=== PATIENT | male | born 1955 | race Caucasian/White ===

== ENCOUNTER 2018-12-27 18:41 | Emergency (ER) | payer SELFPAY ==
[~2018-12-27] VITALS: Ht 172.7 cm; Wt 80.0 kg
[~2018-12-27 18:41] MED LIST: NAPR-856 PO; PANT40GR PO
[2018-12-27 18:47] VITALS: BP 115/78
--- NOTE | 2018-12-27 19:20 | NUR ---
REPORT FROM ANGIE BURKS
[2018-12-27] MEDS ORDERED: THIAMINE 100MG TABLET PO ONE (19:30)
--- NOTE | 2018-12-27 20:22 | NUR ---
PT RESTING IN GURNEY W/ EYES CLOSED. RESPIRATIONS EVEN/UNLABORED.
[2018-12-27] MEDS ORDERED: THIAMINE 100MG TABLET ONE (20:38)
--- NOTE | 2018-12-27 21:04 | NUR ---
PT AMBULATORY WITH STEADY GATE. A&OX4. SPEECH CLEAR. PT PROVIDED CLEAN JACKET. DC EDUCATION PROVIDED, PT DEMONSTRATES UNDERSTANDING. PT REFUSING TAXI VOUCHER TO ASSISTED, "I CAN'T STAY THERE!".
== END 2018-12-27 21:06 | disposition home or self-care (01) ==
LOC: ED 20:45
DX: F10.220 Alcohol dependence with intoxication, uncomplicated (principal)
CPT/HCPCS: 99283